=== PATIENT | female | born 1995 | race Caucasian/White ===

== ENCOUNTER → 2018-12-20 | Outpatient (CLI) | payer SELFPAY ==
[2018-12-20 17:48] LABS: Chlamydia Trachomatis by PCR Negative (Negative); Neisserai gonorrhoeae by PCR Negative (Negative); Probe Check PASS; Sample Adequacy Control PASS; Specimen Processing Control PASS
[2018-12-24 12:17] LABS: HPV Reflexed? NOT INDICATED
== END | disposition home or self-care (01) ==
LOC: LABSPEC 15:20
PROVIDERS: Visit Provider Obstetrics & Gynecology
DX: Z34.81 Encounter for supervision of other normal pregnancy, first trimester (principal); Z12.4 Encounter for screening for malignant neoplasm of cervix; Z11.3 Encounter for screening for infections with a predominantly sexual mode of transmission
CPT/HCPCS: 87491; 87591; 88175; G0145

== ENCOUNTER → 2019-01-10 14:19 | Outpatient (CLI) | payer SELFPAY ==
[2019-01-10 15:44] LABS: Color, Urine Yellow (Yellow); Glucose, Dipstick Normal (Normal); Ketone-Dipstick Negative (Negative); Leukocyte Esterase-Dipstick 25 /ul (Negative); Nitrite-Dipstick Negative (Negative); Occult Blood-Urine Negative /ul (Negative); Protein-Dipstick Negative (Negative); Urine Bilirubin Dipstick Negative (Negative); Urine Clarity Clear (Clear); Urine Urobilinogen Normal (Normal)
[2019-01-10 15:48] LABS: Absolute Lymphocyte Count 1.92 X10^3/ul (0.83-4.51); Absolute Neutrophil Count 6.5 X10^3/uL (2.0-7.7); Basophil# 0.02 X10^3/uL; Basophil% 0.2 % (0-1); Eosinophil# 0.16 X10^3/uL; Eosinophils% 1.7 % (0-5); Hematocrit 41.1 % (37-47); Lymphocyte # 1.92 X10^3/ul (4.0); Lymphocyte % 20.8 % (19-41); Mean Corp Hgb Conc 34.1 g/gl (32-36); Mean Corpuscular Hgb 27.8 pg (27.0-32.0); Mean Corpuscular Volume 81.5 fL (81-99); Mean Platelet Vol. 10.1 fl (6.2-12.0); Monocyte# 0.61 X10^3/uL; Monocyte% 6.6 % (0-10); Neutrophil % 70.4 % (47-70); Platelet Count 227 K/mm3 (150-450); RBC Distribution Width CV 13.4 % (11.6-14.6); RBC Distribution Width SD 39.2 fl (35.1-43.9); Red Blood Count 5.04 M/mm3 (4.2-5.4); White Blood Count 9.2 K/mm3 (4.4-11.0)
[2019-01-10 15:50] LABS: POSITIVE COUNT NO; POSITIVE DIFFERENTIAL NO; POSITIVE MORPHOLOGY NO
[2019-01-10 16:06] LABS: Thyroid Stim Hormone (TSH) 0.89 uIU/mL (0.358-3.74)
[2019-01-11 09:23] LABS: HIV - WCH Non-Reactive (Nonreactive); Hepatitis B Surface Antigen Non-Reactive (Nonreactive); Hepatitis C Antibody Non-Reactive (Nonreactive); Rubella IgG 304.9 IU/mL
[2019-01-14 01:18] LABS: Prenatal RPR NONREACTIVE (NONREACTIVE)
== END ==
PROVIDERS: Visit Provider Obstetrics & Gynecology
DX: Z34.81 Encounter for supervision of other normal pregnancy, first trimester (principal)
CPT/HCPCS: 36415; 81002; 84443; 85025; 86703; 86762; 86803; 87340

== ENCOUNTER → 2019-05-06 13:35 | Outpatient (CLI) | payer SELFPAY ==
[2019-05-06 16:04] LABS: Hematocrit 37.5 % (37-47); Hemoglobin 12.5 g/dL (12.0-15.0); Mean Corp Hgb Conc 33.3 g/dL (32-36); Mean Corpuscular Hgb 28.4 pg (27.0-32.0); Mean Corpuscular Volume 85.2 fL (81-99); Mean Platelet Vol. 9.8 fl (6.2-12.0); Platelet Count 170 K/mm3 (150-450); RBC Distribution Width CV 13.8 % (11.6-14.6); RBC Distribution Width SD 42.4 fl (35.1-43.9); White Blood Count 9.4 K/mm3 (4.4-11.0)
[2019-05-06 16:32] LABS: Glucose Challenge Gest 1H 50g 112 mg/dL (70-140)
== END ==
PROVIDERS: Visit Provider Obstetrics & Gynecology
DX: Z34.83 Encounter for supervision of other normal pregnancy, third trimester (principal)
CPT/HCPCS: 36415; 82950; 85027

== ENCOUNTER → 2019-07-04 14:32 | Outpatient (CLI) | payer SELFPAY | PROVIDERS: Visit Provider Obstetrics & Gynecology | DX: Z36.85 Encounter for antenatal screening for Streptococcus B (principal) | CPT/HCPCS: 87081 ==

== ENCOUNTER 2019-07-29 01:35 | Inpatient (IN) | payer SELFPAY ==
[2019-07-28 23:28] VITALS: BMI 42.7
[2019-07-29] MEDS: Lactated Ringers 500 ML 999 ML IV ×2 (02:00→02:41)
[2019-07-29 02:05] LABS: Absolute Lymphocyte Count 2.83 X10^3/uL (0.83-4.51); Absolute Neutrophil Count 6.6 X10^3/uL (2.0-7.7); Basophil# 0.04 X10^3/uL; Basophil% 0.4 % (0-1); Eosinophil# 0.12 X10^3/uL; Eosinophils% 1.1 % (0-5); Hematocrit 39.5 % (37-47); Hemoglobin 13.1 g/dL (12.0-15.0); Lymphocyte # 2.83 X10^3/ul (4.0); Lymphocyte % 26.8 % (19-41); Mean Corp Hgb Conc 33.2 g/dL (32-36); Mean Corpuscular Hgb 28.1 pg (27.0-32.0); Mean Corpuscular Volume 84.6 fL (81-99); Mean Platelet Vol. 9.8 fl (6.2-12.0); Monocyte# 0.88 X10^3/uL; Monocyte% 8.3 % (0-10); NRBC Flagged by Analyzer 0 % (0-5); Neutrophil # 6.58 X10^3/uL (2.7-7.7); Neutrophil % 62.5 % (47-70); Platelet Count 189 K/mm3 (150-450); RBC Distribution Width CV 14.3 % (11.6-14.6); RBC Distribution Width SD 43.3 fl (35.1-43.9); Red Blood Count 4.67 M/mm3 (4.2-5.4); White Blood Count 10.6 K/mm3 (4.4-11.0)
[2019-07-29] MEDS: fentaNYL-bupivacaine (epidural) 100 ML BAG EPIDURAL (02:47)
[2019-07-29] MEDS: Lactated Ringers 1,000 ML 50 ML IV (03:00)
[2019-07-29] MEDS: Lactated Ringers 1,000 ML 200 ML IV (04:24)
[2019-07-29] MEDS: Oxytocin 30 units/NS 500 ml 30 UNITS/500 ML IV.SOLN 334 UNITS IV (06:00)
--- NOTE | 2019-07-29 06:13 | PCM.HP.BLA ---
History and Physical Date of Admission: 07/29/19 [facility] [place] ANTEPARTUM RECORD - HISTORY AND PHYSICAL (07/29/2019) Name: NAS JAMES History of This : This is a 23-year-old patient 2 para 1 who presents at 40 weeks 1 day gestation in active labor. care has been uneventful otherwise. OB Physician: MIKE 's Physician: Dr Bob Burt ...................................................................... : 1995 Age: 23 Address: [address] [place] [address] Phone: (h) [phone] Insurance Carrier: Emergency Contact: JIMBO JAMES [phone] ...................................................................... Final SHIRA: 07/28/19 By Ultrasound: PARITY: (G-Total Pregnancies P-Fullterm,Premature,Induced AB,Spont AB, Ectopics, Multiple,Living) SHIRA CONFIRMATION: By LMP: 10/21/18 Final SHIRA: 07/28/19 OB PROBLEM LIST: [facility] Sibling Class suggested. Declines AFP and CF. Hx vag yeast 3 trimester w first baby-poor latch/thrush for both-weaned at 3w. Enc office Class. First delivery at [facility]. PREFERS MD CARE ALLERGIES: No Known Drug Allergies MEDICATIONS: Probiotic 10 billion cell capsule daily Supplement (s) [No Strength] Vitamin Code Raw Vitamin B-6 50 mg capsule One pill by mouth once a day SOCIAL HISTORY: Smoking - Never Alcohol Use - RARELY not while Diet - balanced Diet, caffeine < 2 drinks per day and Water intake tries for three quarts. Lifestyle - low stress lifestyle and Exercise - Minimal now. Likes to walk. Employer - homemaker Job Description - Illicit Drug Use - denies use of street drugs Sexual Activity - Residence - rent home Place of - [place] Spouse-Sig Other Name - Jimbo Spouse-Sig Other Occupation - [employer] Ann Spouse-Sig Other Phone No - [phone] Children Name(s) - Aida PRIOR DELIVERY HISTORY DEL DATE GEST LAB WT LB WT OZ TYPE ANES LABOR TX Jul 04 [phone] Vag Local No ANTEPARTUM FLOW CHART VISIT GE RTC FU F F CT U U DATE WK MD WKS HT PN HR M SS BP ED WT CT GL D EF ST __ ____ ___ __ __ ___ __ __ __ ___ __ __ __ ___ __ Jul JMW 1 38 V + + 126/78 1+ 246 tr - 2 50 hi 30 Jun ELB 1 38 V + + 124/80 sl 245 - - Jun ELB 1 37 - + + 128/84 sl 244 - - Jun ELB 1 36 V + + 122/80 sl 244 tr - cl TH hi Jun 34 ELB 2 34 - + + 120/66 sl 241 tr - 15 May ELB 2 32 - + + 100/62 sl 239 - - Jun 18 ELB 2 32 + + 102/66 sl 237 - - May 16 ELB 2 28 + + 110/80 sl 235 - - Apr 13 ELB 3 25 - + + 90/60 sl 232 - - Mar 09 ELB 4 - - + + 118/60 0 229 - - Feb 01 ELB 4 - - + ? 120/80 0 227 tr - Dec 28 ELB 4 - - U+ US 120/82 0 228 tr - ANTEPARTUM NOTE(S): Jul 25 2019: Good FM Jul 18 2019: Jul 11 2019: Jul 04 2019: GBS today Jun 20 2019: Jun 03 2019: feeling well. May 20 2019: doing well May 06 2019: feeling well. Glucola drawn. Apr 15 2019: feeling well. Mar 17 2019: Feb 14 2019: gender u/s planned, no comp Jan 10 2019: mild nausea and increased acid indigestion COMPREHENSIVE ANTEPARTUM NOTE(S): Jul 25 2019: Nas is here for a appointment. Baby is moving good. Reports minimal swelling at night. No other complaints. Urine came back as tr -. MK Jul 18 2019: Nas reporting good FM. Some Adam-Echeverria. Defers vag exam today. She did get pre-registered. [facility] Jul 18 2019: Not too much happening re UCs. + FM. Relates traumatic first delivery, no epidural Very painful. Laceration to repair then. WANTS epidural this time. RTO in 1 wk for PNV. EB Jul 11 2019: Nas reporting good FM. No Sx labor. Sent to pre-register. [facility] Jul 11 2019: H taken to OB. tkg Jul 07 2019: GBS negative. EB Jul 04 2019: GBS testing today. RTO in 1 wk for PNV. Declines LARC. Explained GBS testing and tx. EB Jun 20 2019: Nas is here for visit. Uncomfortable but otherwise doing well. Reviewed increased rest breaks may help. Tdap and Flu vaccine encouraged. LMT May 20 2019: Feeling well; reports active FM; denies UCs, VB, LOF; discussed warning signs, s/s PTL; RTO 2 weeks for PNV - KVW May 10 2019: Glucola 112. EB May 06 2019: Feeling well; reports active FM; denies UCs, VB, LOF; 1 hour Glucola and bloodwork drawn today; discussed warning signs, s/s PTL; RTO 2 weeks for PNV with EB - KVW May 06 2019: Hgb 12. 5 g/dl. EB Apr 15 2019: Feeling FM now. Anterior placenta 28 wk labs next visit. Encouraged : tdaP and flu vaccine. EB Mar 17 2019: Comprehensive US today. Anterior placenta--Nas is feeliing FM. kbm Feb 14 2019: Reviewed NOB labs. Plans recreational sono in [place] to see gender. Declines 20 wk sono. EB Jan 11 2019: A positive Rubella Immune. EB Jan 10 2019: Nas is here for NOB nurse visit with SHIRA 07-28-19 planning a vag del w epidural at [facility], using Dr Burt for post disch ped care and to breastfeed. Nas is a G 2 P 1 with 2 1/2 yo daughter and is a homemaker. Her , Jimbo works as a mary ann. They are pleased about the pg. Nas had a 7 hour labor without an epidural in [place] but prefers to have one this time. did not go well as she had latch issues and then thrush early on. She relates she had untreated vag yeast symptoms of itching and burning in her third trimester - checked and treated when she insisted. She'd like more assistance in OB with nursing and plans to take office Classes. Nas has NKA to meds, food, latex or the environment. She is a lifetime non smoker, rarely drinks alcohol and denies street drug use past or present. Her diet sounds balanced w minimal caffeine and about 3 quarts of water daily. Importance of protein in her diet discussed. She used to be more active and walking 20 min q day suggested. Genetics Screening form completed noting no family issues. She declines CF and AFP. Warning signs in pg reviewed as well as reaching the office after hours, lifting restriction of 25#, otc med ok to take, wearing seatbelt low on her abdomen with understanding voiced. She was given a copy of What to Expect. She's had chickenpox and has some problems with constipation which her probiotic usually helps. US done today and routine labs drawn. Enc to call w any concerns she has. Visit lasted approx 45 min. Dione DICKINSON. Jan 10 2019: Hgb 14 g/dl. EB Dec 21 2018: GC and chlamydia NEG EB Dec 20 2018: Nas is here for missed menses. She relates LMP of 10/21, +UPT today in office, approx EDC 07/28/19. She is . She had normal with induction for post dates with . She had more nausea with first . Mild nausea reported with occ emesis. Does have pretty bad reflux. Reviewed trial of Unisom, B6, and adding acid pier master assistant. IF this is not working to call office for Rx. She is on Vitamin Code Raw PNV. She would be due for pap today. No history of abnormals. Educational materials are provided and reviewed. Encouraged increased po fluids, diet changes, and recommend 30 minutes of exercise 5x/wk. LMT REVIEW OF SYSTEMS: GENERAL - Denies fever, or chills SKIN - Denies rash, new skin lesions, or change in moles EYES - Denies blurred vision, or change in visual acuity EARS - Denies ear pain, or difficulty hearing NOSE - Denies nasal congestion, discharge, or bleeding MOUTH - Denies sore throat, or difficulty swallowing NECK - Denies pain or swelling RESPIRATORY - Denies shortness of breath, cough, wheezing CARDIOVASCULAR - Denies palpitations, chest pain, orthopnea, PND, peripheral edema, syncope or claudication GASTROINTESTINAL - Denies nausea, vomiting, diarrhea, constipation, Denies abdominal pain, melena and or bright red blood GENITOURINARY - Denies dysuria, frequency of urination, urgency, or hesitancy MUSCULOSKELETAL - Denies joint or muscle pain, or back pain NEUROLOGICAL - Denies localized numbness, weakness, or tingling PSYCHIATRIC - Denies depression, anxiety, substance abuse or suicide attempts ENDOCRINE - Denies heat or cold intolerance, weight loss or gain, increasing thirst HEMATO-IMMUNOLOGIC - Denies easy bruising, bleeding, oral ulcerations or recurrent infections GENETICS SCREENING: Age 35+ years: No Thalassemia: No Neural Tube Defect: No Down Syndrome: No WARNER-SACHS: No Sickle Cell Disease: No Hemophilia: No Musc. Dystrophy: No Cystic Fibrosis: No-declines screening Baljinder Chorea: No Mental Retardation: No Fragile X: No Other genetic: No Other defects: No SABs/still births: No Drugs since LMP: No INFECTION HISTORY: High risk AIDS: No High risk Hepatitis: No Exposed to TB: No Exposed to Herpes: No Rash/viral illness since LMP: No History of STD: No MENSTRUAL HISTORY: *Menses Amount/Duration: 4-5 DAYSMenses Regularity: IrregularFrequency: variableMenarche (Age Onset): 13* PAST SUMMARY: PARITY: 1. Total Pregnancies............ 2 2. Full Term Pregnancies........ 1 3. Premature.................... 0 4. Abortions - Induced.......... 0 5. Abortions - Spontaneous...... 0 6. Ectopics..................... 0 7. Multiple Births.............. 0 8. Living Children.............. 1 PAST #1: Date of :.................. 07/10/16 Gestation Weeks:................ 41 Length of labor(hours):......... 7 Sex:............................ F Weight-lbs:............... 8 Weight-oz:................ 9 Type of Delivery:............... Vag Type of Anesthesia:............. Local Place of Delivery:.............. Shah Treatment of Labor?:.... No Comment: IND.PUPPS. 2PUSHES.3RD D. PHYSICAL EXAMINATION General Appearence: 23 yo female in no acute distress Vital Signs: AF, VSS Heart: RRR without rubs or gallops Lungs: CTA x 2 Breasts: deferred Abdomen: gravid Pelvis: Cervix: 4 cm, 85% effaced Presentation: cephalic Station: -2 Fetus: Size: AGA Movement: present Heart: present Labs for : NAS JAMES since 10/31/2018 ORDER DATEIN DESCRIPTION VALUE UNITS RANGE A+ COMMENT TYPE AND SCREEN 07/29/19 Reason for Type AND Screen/Red Cells: Labor [facility]~[address] [place], [address]~ BLOOD TYPE GEL A POSITIVE N ANTIBODY SCREEN NEGATIVE N CBC W/DIFF, AUTOMATED 07/29/19 NOTE Original Ordering Provider: STERLING Aceves WBC 10.6 K/mm3 4.4-11.0 RBC 4.67 M/mm3 4.2-5.4 HGB 13.1 g/dL 12.0-15.0 HCT 39.5 % 37-47 MCV 84.6 fL 81-99 MCH 28.1 pg 27.0-32.0 MCHC 33.2 g/dL 32-36 RDW CV 14.3 % 11.6-14.6 RDW SD 43.3 fl 35.1-43.9 PLT 189 K/mm3 150-450 MPV 9.8 fl 6.2-12.0 NEUT% 62.5 % 47-70 LY% 26.8 % 19-41 MONO% 8.3 % 0-10 EO% 1.1 % 0-5 BASO% 0.4 % 0-1 IM GRAN % 0.900 % 0.0-0.9 IG% - Immature Granulocytes (promyelocytes, myelocytes and metamyelocytes) > 1% indicates that a LEFT SHIFT is Present. ABSOLUTE NEUT 6.6 X10 3/uL 2.0-7.7 ABSOLUTE LYMPH 2.83 X10 3/uL 0.83-4.51 NRBC, FLAGGED 0 % 0-5 CULTURE, GROUP B STREPTOCOCCUS 07/04/19 NOTE Original Ordering Provider: Rita Kern Comments: VAGINAL/RECTAL LENO Culture Group B Beta Streptococcus is not isolated. Reviewed by RITA GLUCOSE CHALLENGE GEST 1H 50G 05/06/19 NOTE Original Ordering Provider: Rita Kern GLU GEST 50G 1H 112 mg/dL 70-140 Reviewed by RITA CBC-COMPLETE BLOOD CNT NO DIFF 05/06/19 NOTE Original Ordering Provider: Rita Kern WBC 9.4 K/mm3 4.4-11.0 RBC 4.40 M/mm3 4.2-5.4 HGB 12.5 g/dL 12.0-15.0 HCT 37.5 % 37-47 MCV 85.2 fL 81-99 MCH 28.4 pg 27.0-32.0 MCHC 33.3 g/dL 32-36 RDW CV 13.8 % 11.6-14.6 RDW SD 42.4 fl 35.1-43.9 PLT 170 K/mm3 150-450 MPV 9.8 fl 6.2-12.0 Reviewed by RITA RPR 01/10/19 NOTE Original Ordering Provider: Rita Kern RPR NONREACTIVE NONREACTIVE Reviewed by RITA HEPATITIS C ANTIBODY 01/10/19 NOTE Original Ordering Provider: Rita Kern HEPATITIS C AB Non-Reactive Nonreactive Non Reactive: < 0.8 Equivocal: >/= 0.8 to < 1.0 Reactive: >/= 1.0 The CDC recommends that a reactive/equivocal HCV antibody result be followed up by the HCV Nucleic Acid Amplification test (015003) Reviewed by RITA HEPATITIS B SURFACE ANTIGEN 01/10/19 NOTE Original Ordering Provider: Rita Kern HEPB SURFACE AG Non-Reactive Nonreactive Reviewed by RITA HIV - [facility] 01/10/19 NOTE Original Ordering Provider: Rita Kern HIV - [facility] Non-Reactive Nonreactive Reviewed by RITA RUBELLA IGG 01/10/19 NOTE Original Ordering Provider: Rita Kern RUBELLA IGG 304.9 IU/mL Antibody results Interpretation of Immune Status < 5 IU/ml Presumed Non-immune 5 - < 10 IU/ml Equivocal > or = 10 IU/ml Presumed Immune Reviewed by RITA T AND S-NO CHARGE W/PNP 01/10/19 Reason for Type AND Screen/Red Cells: Surgery? N [facility]~[address] [place], [address]~ BLOOD TYPE GEL A POSITIVE N AB SCREEN GEL NEGATIVE N Reviewed by RITA THYROID STIM HORMONE (TSH) 01/10/19 NOTE Original Ordering Provider: Rita Kern TSH 0.89 uIU/mL 0.358-3.74 Reviewed by RITA CBC W/DIFF, AUTOMATED 01/10/19 NOTE Original Ordering Provider: Rita Kern WBC 9.2 K/mm3 4.4-11.0 RBC 5.04 M/mm3 4.2-5.4 HGB 14.0 g/dl 12.0-15.0 HCT 41.1 % 37-47 MCV 81.5 fL 81-99 MCH 27.8 pg 27.0-32.0 MCHC 34.1 g/gl 32-36 RDW CV 13.4 % 11.6-14.6 RDW SD 39.2 fl 35.1-43.9 PLT 227 K/mm3 150-450 MPV 10.1 fl 6.2-12.0 NEUT% 70.4 % 47-70 H LY% 20.8 % 19-41 MONO% 6.6 % 0-10 EO% 1.7 % 0-5 BASO% 0.2 % 0-1 IM GRAN % 0.300 % 0.0-0.9 IG% - Immature Granulocytes (promyelocytes, myelocytes and metamyelocytes) > 1% indicates that a LEFT SHIFT is Present. ABSOLUTE NEUT 6.5 X10 3/uL 2.0-7.7 ABSOLUTE LYMPH 1.92 X10 3/ul 0.83-4.51 Reviewed by RITA URINALYSIS, ROUTINE (DIPSTICK) 01/10/19 NOTE Original Ordering Provider: Rita Kern COLOR Yellow Yellow CLARITY Clear Clear GLUCOSE, UR Normal mg/dl Normal BILIRUBIN URINE Negative mg/dL Negative KETONE UR Negative mg/dl Negative SP.GR. DIPSTX 1.010 1.002-1.030 PH UR 7.0 5.0 - 8.0 PROT DIPSTX Negative mg/dl Negative UROBILI Normal mg/dl Normal NITRITE UR Negative Negative OCCULT BLOOD-UR Negative /ul Negative LEUK ESTERASE 25 /ul Negative H Reviewed by RITA PAP I-G W/RFX HRHPV 12/20/18 NOTE Original Ordering Provider: Rita Kern DIAGN . NEGATIVE FOR INTRAEPITHELIAL LESION OR MALIGNANCY. ADEQ . Satisfactory for evaluation. No endocervical component is identified. An endocervical component is not commonly seen in the patient. PERFORM . Aishwarya Collazo Community Marketing Manager (ASCP) TEST METHOD . This liquid based ThinPrep(R) pap test was screened with the use of an image guided system. COMM . . PAPSMR . The Pap smear is a screening test designed to aid in the detection of premalignant and malignant conditions of the uterine cervix. It is not a diagnostic procedure and should not be used as the sole means of detecting cervical cancer. Both false-positive and false-negative reports do occur. HPV RFLX . The HPV DNA reflex criteria were not met with this specimen result therefore, no HPV testing was performed. Performed at: [address] [id number] Daycare Director: Keisha Cheatham MD, Phone: [phone] Reviewed by RITA CT/EDUARDO [facility] BY PCR 12/20/18 NOTE Original Ordering Provider: Rita Kern [facility] PCR Negative Negative NG BY PCR Negative Negative Reviewed by RITA Impression /Plan: 40+ week intrauterine in active labor. Preparations in progress for delivery.
--- NOTE | 2019-07-29 06:16 | PCM.OPRPT ---
Vaginal Delivery Maternal Presentation: Active Labor Amniotic Membrane Rupture Type: Spontaneous Amniotic Fluid Description: Clear Final SHIRA: 07/28/19 Final SHIRA Source: US <20 weeks Gestational age: 40 Weeks and 1 Days Date of Procedure: 07/29/19 Pre-Operative Diagnosis: IUP Post-Operative Diagnosis: IUP Surgery/ Procedure Performed: Spontaneous Vaginal Delivery Type of Anesthesia: Epidural Description of Procedure: Spontaneous vaginal delivery of a viable female infant with Apgars of 9/9 from an occiput anterior presentation with clear amniotic fluid and normal three-vessel placenta. Cord around shoulder x1 tight. No episiotomy. First-degree midline laceration repaired in layers with 3-0 repeat suture under epidural. Sponges okay. Delivery physician: Aries Miller MD. Presentation: Vertex Placental Delivery Description: Spontaneous Placenta Disposition: [facility] Cord Vessel Description: 3 Vessels Estimated Blood Loss: 250 cc Infant A gender: Female (1 minute): 9 (5 minute): 9 Episiotomy Description: None Laceration: Midline, Perineal Extension/lac, 1st degree Medications given after delivery: IV Pitocin Complications: None
--- NOTE | 2019-07-29 06:19 | DCINST_ITS ---
Discharge Activity: May Shower, May Take a Tub Bath May resume sexual activity in: 4-6 weeks Additional Activity Instructions:: Nothing in the vagina for 4-6 weeks. You may return to work/school in 6 weeks. Call your doctor if you observe: Fever of 101 or Higher, Inability to urinate, Inability to have a bowel movement, Using more than one pad per hour Additional Instructions: If you experience any of the following, contact your healthcare provider. * Bleeding that soaks a pad every hour for 2 hours * Unrelieved incision or abdominal pain * Swelling, redness, discharge or bleeding from your incision or episiotomy site * Your incision begins to separate * Problems urinating (including inability to urinate or burning while urinating). * Visual changes * Severe headache * Flu-like symptoms * Pain or redness in one of both of your breasts * Pain, warmth, tenderness or swelling in your legs, especially the calf area * Frequent nausea and vomiting * Symptoms of depression or anxiety If you experience any of the following, call 911 or go to the nearest Emergency Room. * Chest pain * Problems breathing * Seizure activity * Partial or complete paralysis of a body part, slurred speech, weakness or drooping of the face, or a sudden inability to walk or hold your balance Allergies/Adverse Reactions: Allergies No Known Allergies Allergy (Verified 07/28/19 23:30) Medications to take at Discharge Prenatabs FA 1 tab PO DAILY 07/28/19 Please Follow Up With: Aries Miller MD - [phone] When: Call to make an appointment with your doctor in 6 weeks. Primary Care Physician: Care Physician,No Primary [Primary Care Provider] - Test Results: Test results from this visit will be discussed in further detail at your follow- up appointment, if applicable.
--- NOTE | 2019-07-29 06:19 | PCM.DCVAG ---
Discharge Activity: May Shower, May Take a Tub Bath May resume sexual activity in: 4-6 weeks Additional Activity Instructions:: Nothing in the vagina for 4-6 weeks. You may return to work/school in 6 weeks. Call your doctor if you observe: Fever of 101 or Higher, Inability to urinate, Inability to have a bowel movement, Using more than one pad per hour Additional Instructions: If you experience any of the following, contact your healthcare provider. Bleeding that soaks a pad every hour for 2 hours Unrelieved incision or abdominal pain Swelling, redness, discharge or bleeding from your incision or episiotomy site Your incision begins to separate Problems urinating (including inability to urinate or burning while urinating). Visual changes Severe headache Flu-like symptoms Pain or redness in one of both of your breasts Pain, warmth, tenderness or swelling in your legs, especially the calf area Frequent nausea and vomiting Symptoms of depression or anxiety If you experience any of the following, call 911 or go to the nearest Emergency Room. Chest pain Problems breathing Seizure activity Partial or complete paralysis of a body part, slurred speech, weakness or drooping of the face, or a sudden inability to walk or hold your balance Allergies/Adverse Reactions: Allergies No Known Allergies Allergy (Verified 07/28/19 23:30) Medications to take at Discharge Prenatabs FA 1 tab PO DAILY 07/28/19 Please Follow Up With: Aries Miller MD - [phone] When: Call to make an appointment with your doctor in 6 weeks. Primary Care Physician: Care Physician,No Primary [Primary Care Provider] - Test Results: Test results from this visit will be discussed in further detail at your follow-up appointment, if applicable.
[2019-07-29] MEDS: Methylergonovine 0.2 MG/ML Ampul IM (08:27)
[2019-07-29] MEDS: Acetaminophen 500 MG Tablet 1000 MG PO ×2 (08:47→21:18)
[2019-07-29 12:35] VITALS: BP 132/82; PULSE 80; RESP 16; TEMP 36.5
[2019-07-29] MEDS: Ibuprofen 600 MG Tablet PO ×2 (13:38→20:01)
[2019-07-29 16:36] VITALS: BP 122/55; PULSE 80; RESP 18; TEMP 36.2
[2019-07-29 19:51] VITALS: BP 123/68; PULSE 87; RESP 14; TEMP 36.7
[2019-07-29 23:28] VITALS: BP 117/44; PULSE 72; RESP 14; TEMP 36.4
[2019-07-30 03:49] VITALS: BP 121/46; PULSE 84; RESP 16; TEMP 36.4
[2019-07-30] MEDS: Acetaminophen 500 MG Tablet 1000 MG PO (09:01)
[2019-07-30 09:03] VITALS: BP 117/71; PULSE 70; RESP 16; TEMP 36.3
[2019-07-30] MEDS: Ibuprofen 600 MG Tablet PO (11:02)
[2019-07-30 11:20] VITALS: BP 121/81; PULSE 64; RESP 16; TEMP 36.3
--- NOTE | 2019-07-30 12:35 | NURSING ---
discharge instr reviewed with the pt and her spouse. discharge instr reviewed regarding the baby as well cord clamp and transponder removed pt has watched her cpr video and footprints on comp card done as well pt and baby taken to the front of the hosp and dc to home
--- NOTE | 2019-07-30 12:49 | PCM.PN.OB ---
Subjective: Pain well controlled, tolerating diet, passing flatus, nursing well; spouse bedside and supportive; desires discharge home today Objective: AVSS Breasts soft, nipples mildly excoriated Fundus firm, midline, u/u lochia small Perineal repair well approximated, mild edema, no drainage, erythema or ecchymosis noted - Physical Exam Vitals/I&O's: Vital Signs Temp Pulse Resp BP 97.4 F L 64 16 121/81 H 07/30/19 11:20 07/30/19 11:20 07/30/19 11:20 07/30/19 11:20 Oxygen Delivery Method Room Air Weight: 249 lb Body Mass Index (BMI) 42.7 Intake and Output for Last 24 Hours 07/28/19 07/29/19 07/30/19 23:59 23:59 23:59 Intake Total 1992.50 / 1991.50 200 / 200 Output Total 900 / 900 Balance 1092.50 / 1092.50 200 / 200 General: Alert, Oriented x3, Cooperative, No apparent distress HEENT: PERRLA, EOMI Oral: Moist Mucosa Neck: Supple Lungs: Clear to auscultation, Normal air movement Cardiovascular: Regular rate, Regular Rhythm Abdomen: Bowel Sounds Present, Soft, Non Tender, Non-Distended, Passing Flatus, Obese Extremities: Edema - 2+ non pitting bilateral pedal Skin: No rashes Musculoskeletal: No Tenderness to Palpation of Joints or Extremities Neurological: Cranial nerves II-XII grossly intact, Deep Tendon Reflexes 2+/4 and Symmetrical, Neuro grossly intact Psych/Mental Status: Normal Affect, Appropriate, Alert and oriented to time, place, person, mood and affect Current Medications Acetaminophen (Tylenol) 1,000 mg PO Q8H PRN PRN PRN Reason: Pain Score 1-3/10 Last Admin: 07/30/19 09:01 Dose: 1,000 mg Documented by: Bisacodyl (Dulcolax) 10 mg RECTAL UD PRN PRN Reason: If no BM Dibucaine (Dibucaine) 1 applic TOPICAL TID PRN PRN; Protocol PRN Reason: Discomfort Hydrocortisone (Hytone) 1 applic TOPICAL TID PRN PRN; Protocol PRN Reason: Discomfort Ibuprofen (Motrin) 600 mg PO Q6H PRN PRN PRN Reason: Pain Score 1-3/10 Last Admin: 07/30/19 11:02 Dose: 600 mg Documented by: Methylergonovine Maleate (Methergine) 0.2 mg IM X1 PRN PRN Reason: Excess bleeding/uterine atony Last Admin: 07/29/19 08:27 Dose: 0.2 mg Documented by: Ondansetron HCl (Zofran) 4 mg IV Q4H PRN PRN PRN Reason: Nausea Oxycodone HCl (Oxyir) 5 - 10 mg PO Q4H PRN PRN PRN Reason: Pain Score 4-10/10 Senna/Docusate Sodium (Senokot-S, Alondra-Colace) 1 - 2 tablet PO DAILY PRN PRN PRN Reason: Constipation Simethicone (Mylicon) 80 mg PO PCHS PRN PRN Reason: Indigestion/Stomach pain Zolpidem Tartrate (Ambien (Generic)) 5 mg PO QHS PRN PRN PRN Reason: Insomnia Medical Necessity - Tobacco Use Smoking Status: Never smoker Assessment/Plan Assessment: 23 yo G2 now P002 delivered via at 40w1d by L=11w4d US PP Day #1, normal involution, normal course Plan: Discharge teaching completed Discharge home today RTO 6 weeks for PP checkup
== END 2019-07-30 12:30 | disposition home or self-care (01) | DRG 807 ==
LOC: WPOUT 01:39 → WP 01:39
PROVIDERS: Admitting Provider Advanced Practice Midwife; Referring Provider Advanced Practice Midwife; Visit Provider Obstetrics & Gynecology
DX: O42.02 Full-term premature rupture of membranes, onset of labor within 24 hours of rupture (principal); Z37.0 Single live birth; O69.2XX0 Labor and delivery complicated by other cord entanglement, with compression, not applicable or unspecified; O70.0 First degree perineal laceration during delivery; Z3A.40 40 weeks gestation of pregnancy
CPT/HCPCS: 59025; 59050; 85025; 86850; 86900; 86901; 99218; J7120; G0378

== ENCOUNTER 2021-08-26 14:37 | Outpatient (CLI) | payer SELFPAY ==
[2021-08-26 14:56] LABS: Absolute Lymphocyte Count 2.26 X10^3/uL (0.83-4.51); Absolute Neutrophil Count 7.6 X10^3/uL (2.0-7.7); Basophil# 0.06 X10^3/uL; Basophil% 0.6 % (0-1); Eosinophil# 0.13 X10^3/uL; Eosinophils% 1.2 % (0-5); Hematocrit 40.8 % (37-47); Hemoglobin 13.7 g/dL (12.0-15.0); Lymphocyte # 2.26 X10^3/ul (0.83-4.51); Lymphocyte % 21.1 % (19-41); Mean Corp Hgb Conc 33.6 g/dL (32-36); Mean Corpuscular Hgb 28.1 pg (27.0-32.0); Mean Corpuscular Volume 83.6 fL (81-99); Mean Platelet Vol. 9.3 fl (6.2-12.0); Monocyte# 0.59 X10^3/uL; Monocyte% 5.5 % (0-10); NRBC Flagged by Analyzer 0 % (0-5); Neutrophil # 7.57 X10^3/uL (2.7-7.7); Neutrophil % 70.9 % (47-70); Platelet Count 265 K/mm3 (150-450); RBC Distribution Width CV 12.7 % (11.6-14.6); RBC Distribution Width SD 38.3 fl (35.1-43.9); Red Blood Count 4.88 M/mm3 (4.2-5.4); White Blood Count 10.7 K/mm3 (4.4-11.0)
[2021-08-26 16:04] LABS: HIV - WCH Non-Reactive (Nonreactive); Hepatitis B Surface Antigen Non-Reactive (Nonreactive); Hepatitis C Antibody Non-Reactive (Nonreactive); Rubella IgG Reactive (Nonreactive); Syphilis Antibodies Non-reactive
[2021-08-29 21:04] LABS: HPV Reflexed? NOT INDICATED
[2021-08-30 05:07] LABS: Chlamydia By Nucleic Acid AMP Negative (Negative)
[2021-08-30 14:30] LABS: Gonococcus By Nucleic Acid AMP Negative (Negative)
== END 2021-08-26 23:59 | disposition home or self-care (01) ==
LOC: WOBLAB 14:38
PROVIDERS: Visit Provider Student in an Organized Health Care Education/Training Program
DX: Z34.81 Encounter for supervision of other normal pregnancy, first trimester (principal); Z12.4 Encounter for screening for malignant neoplasm of cervix; Z11.3 Encounter for screening for infections with a predominantly sexual mode of transmission
CPT/HCPCS: 36415; 85025; 86703; 86762; 86780; 86803; 87086; 87088; 87340; 87491; 87591; 88175; G0145

== ENCOUNTER → 2022-01-07 | Outpatient (CLI) | payer SELFPAY ==
[2022-01-07 14:27] LABS: Hematocrit 34.1 % (37-47); Hemoglobin 11.5 g/dL (12.0-15.0); Mean Corp Hgb Conc 33.7 g/dL (32-36); Mean Corpuscular Hgb 28.4 pg (27.0-32.0); Mean Corpuscular Volume 84.2 fL (81-99); Mean Platelet Vol. 9.6 fl (6.2-12.0); Platelet Count 217 K/mm3 (150-450); RBC Distribution Width CV 13.4 % (11.6-14.6); RBC Distribution Width SD 41.2 fl (35.1-43.9); Red Blood Count 4.05 M/mm3 (4.2-5.4); White Blood Count 8.8 K/mm3 (4.4-11.0)
[2022-01-07 15:16] LABS: Glucose Challenge Gest 1H 50g 120 mg/dL (70-140)
== END | disposition home or self-care (01) ==
PROVIDERS: Visit Provider Student in an Organized Health Care Education/Training Program
DX: Z34.82 Encounter for supervision of other normal pregnancy, second trimester (principal)
CPT/HCPCS: 36415; 82950; 85027

== ENCOUNTER → 2022-04-01 | Outpatient (CLI) | payer SELFPAY | END | disposition home or self-care (01) | LOC: LABSPEC 14:51 | PROVIDERS: Visit Provider Student in an Organized Health Care Education/Training Program | DX: Z36.85 Encounter for antenatal screening for Streptococcus B (principal) | CPT/HCPCS: 87081 ==

== ENCOUNTER 2022-04-25 08:45 | Inpatient (IN) | payer SELFPAY ==
[2022-04-25] VITALS (30 sets, daily range): BP systolic 113–146; BP diastolic 58–87; PULSE 74–162; TEMP 36.8–37.6; O2SAT 82–100; BMI 43.9
[2022-04-25] MEDS: Lactated Ringers 1,000 ML 50 ML IV (09:10)
[2022-04-25 09:19] LABS: Absolute Lymphocyte Count 1.79 X10^3/uL (0.83-4.51); Absolute Neutrophil Count 7.7 X10^3/uL (2.0-7.7); Basophil# 0.03 X10^3/uL; Basophil% 0.3 % (0-1); Hematocrit 36.8 % (37-47); Hemoglobin 12.5 g/dL (12.0-15.0); Lymphocyte # 1.79 X10^3/ul (0.83-4.51); Lymphocyte % 17.5 % (19-41); Mean Corpuscular Hgb 28.3 pg (27.0-32.0); Mean Corpuscular Volume 83.4 fL (81-99); Mean Platelet Vol. 10.1 fl (6.2-12.0); Monocyte# 0.53 X10^3/uL; Monocyte% 5.2 % (0-10); NRBC Flagged by Analyzer 0 % (0-5); Neutrophil # 7.74 X10^3/uL (2.7-7.7); Neutrophil % 75.4 % (47-70); Platelet Count 219 K/mm3 (150-450); RBC Distribution Width CV 14.4 % (11.6-14.6); RBC Distribution Width SD 43.6 fl (35.1-43.9); Red Blood Count 4.41 M/mm3 (4.2-5.4); White Blood Count 10.3 K/mm3 (4.4-11.0)
[2022-04-25] MEDS: Oxytocin 30 units/NS 500 ml 30 UNITS/500 ML IV.SOLN IV (09:47)
--- NOTE | 2022-04-25 12:37 | PCM.HP.BLA ---
History and Physical Date of Admission: 04/25/22 HPI: 26-year-old G3, P2 at 40/6 weeks, SHIRA by first trimester ultrasound, admitted for induction of labor at term. Denies regular contractions, leaking of fluid. Reports movement. Denies fevers or chills, nausea or vomiting, diarrhea or constipation, headache or vision changes, dizziness, chest pain or shortness of breath. complicated by: Obesity CHILD MONITOR history: G1 41-week G2 40-week G3 current Medical history: Denies Surgical history: [place] tooth extraction Medications: vitamin, Pepcid Allergies: No known drug allergies Family history: Noncontributory Social history: Denies tobacco, alcohol, drug use Review of system: Negative otherwise stated above Physical exam: Blood pressure 113/72, heart rate 80 General: No acute distress HEENT: Normal cephalic/atraumatic, PERRLA Cardiorespiratory: No increased effort Abdomen: Soft, nontender, gravid Extremities: no edema Musculoskeletal: Strength 5 out of 5 throughout all extremities Neurologic: Cranial nerves II through XII grossly intact no focal deficits Ce: 4 cm external os, 3 cm internal. unable to AROM with attempt. heart rate: 135/mod subhash/+accel/no decel [place]: irregular panel: A+ GBS negative on 04/01 HIV, hepatitis B/C all neg Syphilis negative Rubella immune Gonorrhea/chlamydia negative Assessment/plan: 26-year-old G3, P2 at 40/6 weeks, SHIRA by first trimester ultrasound, admitted for induction of labor at term. complicated by: Obesity. ?Admit to labor and delivery ?Induction of labor with Pitocin ?GBS negative
[2022-04-25] MEDS: Lactated Ringers 1,000 ML 200 ML IV (14:41)
[2022-04-25] MEDS: LACTATED RINGERS 500 ML 999 ML IV (16:30)
[2022-04-25] MEDS: fentaNYL-bupivacaine (epidural) 100 ML BAG EPIDURAL (17:10)
--- NOTE | 2022-04-25 17:29 | PCM.PN.OB ---
Subjective Subjective Comfortable with epidural Objective Data Objective Data Vital Signs: Vital Signs Temp Pulse BP Pulse Ox 98.8 F 78 114/71 98 04/25/22 16:23 04/25/22 17:23 04/25/22 17:22 04/25/22 17:23 Weight: 116.12 kg Body Mass Index (BMI) 43.9 Intake & Output: Intake and Output for Last 24 Hours 04/23/22 04/24/22 04/25/22 23:59 23:59 23:59 Intake Total 1336.40 / 1336.40 Output Total 600 / 600 Balance 736.40 / 736.40 Lab / Micro Data Result Diagrams: 04/25/22 09:10 Labs: Laboratory Results - last 24 hr 04/25/22 09:10: WBC 10.3, RBC 4.41, Hgb 12.5, Hct 36.8 L, MCV 83.4, MCH 28.3, MCHC 34.0, RDW Std Deviation 43.6, RDW Coeff of Declan 14.4, Plt Count 219, MPV 10.1, Immature Gran % (Auto) 0.600, Neut % (Auto) 75.4 H, Lymph % (Auto) 17.5 L, [place] % (Auto) 5.2, Eos % (Auto) 1.0, Baso % (Auto) 0.3, Absolute Neuts (auto) 7.7, Absolute Lymphs (auto) 1.79, Nucleated RBC % 0 04/25/22 09:10: Blood Type A POSITIVE, Antibody Screen NEGATIVE Micro: Microbiology 04/25/22 09:10 Nasal Secretion SARS-CoV-2 Antigen (Rapid) - Final Physical Exam Narrative: 4-5 cm/60/-2, AROM clear fluid NST FHR Rate Baby A Baseline: 130 Variability:: Moderate Accelerations:: 15 x 15 Decelerations:: None FHR Category:: Category I Assessment Assessment Detail: Continue induction of labor, titrate Pitocin as tolerated.
[2022-04-25] MEDS: Oxytocin 30 units/NS 500 ml 30 UNITS/500 ML IV.SOLN 334 UNITS IV (19:43)
--- NOTE | 2022-04-25 19:53 | EX.PCM.OBRPT ---
Assessment & Plan (1) (normal spontaneous vaginal delivery): Maternal Data Information Final SHIRA: 04/19/22 Gestational age: 40w6d Vaginal Delivery Operative Information Date of Procedure: 04/25/22 Pre-Operative Diagnosis: Induction of Labor Post-Operative Diagnosis: Surgery / Procedure Performed: Spontaneous Vaginal Delivery Type of Anesthesia: Epidural Estimated Blood Loss: 200ml Time of Delivery: 19:41 Findings Description of Procedure: Progressed to complete with urge to push. Epidural for pain management and on hands and knees. Called to delivery with head . of viable male infant over intact perineum. APGARS 9,9 respectively. Infant head delivered with body immediately forthcoming. Flipped to back and infant placed on maternal abdomen, strong cry. Mouth and nares wiped for secretions. Pitocin started for active 3rd stage management. Cord doubly clamped and cut by FOB after pulsations ceased, delayed cord clamping. Placenta delivered intact via irvin, 3 vessel cord intact. Perineum inspected and revealed to be intact. Fundus firm and hemostasis achieved. EBL 200ml. Mom and baby stable, planning to breastfeed. Family bonding well. Dr. Javier Ortega presented after delivery and notified. Presentation: Vertex Amniotic Membrane Rupture Type: Artificial Amniotic Fluid Description: Clear Placental Delivery Description: Spontaneous Placenta Disposition: [facility] Cord Vessel Description: 3 Vessels Cord Entanglement: None A Gender: Male (1 minute): 9 (5 minute): 9 Delayed Cord Clamping: Yes Post Vaginal Delivery Medications Given After Delivery: IV Pitocin Episiotomy Description: None Laceration: None Complication Complications: None
[2022-04-25] MEDS: Methylergonovine 0.2 MG/ML Ampul IM (21:04)
[2022-04-25] MEDS: Ondansetron 4 MG/2 ML Vial IV (21:17)
[2022-04-25] MEDS: Ibuprofen 600 MG Tablet PO (23:35)
[2022-04-26 00:06] VITALS: BP 136/71; PULSE 79; RESP 16; TEMP 36.6
[2022-04-26 04:52] VITALS: BP 118/67; PULSE 77; RESP 16; TEMP 36.1
[2022-04-26] MEDS: Acetaminophen 500 MG Tablet 1000 MG PO ×2 (07:56→20:24)
[2022-04-26] MEDS: Senna/Docusate Sodium 1 Tablet PO (07:57)
[2022-04-26 08:03] VITALS: BP 133/81; PULSE 71; RESP 16; TEMP 36.6
--- NOTE | 2022-04-26 09:37 | PCM.PN.OB ---
Subjective Subjective day 1. Lochia minimal. Pain controlled. Working on breast-feeding. Objective Data Objective Data Vital Signs: Vital Signs Temp Pulse Resp BP Pulse Ox O2 Del Method 97.9 F 71 16 133/81 H 98 Room Air 04/26/22 08:03 04/26/22 08:03 04/26/22 08:03 04/26/22 08:03 04/25/22 21:59 04/26/22 08:03 Oxygen Delivery Method Room Air Weight: 116.12 kg Body Mass Index (BMI) 43.9 Intake & Output: Intake and Output for Last 24 Hours 04/24/22 04/25/22 04/26/22 23:59 23:59 23:59 Intake Total 3380.97 / 3380.97 Output Total 1200 / 1200 100 / 100 Balance 2180.97 / 2180.97 -100 / -100 Lab / Micro Data Result Diagrams: 04/25/22 09:10 Labs: Laboratory Results - last 24 hr 04/25/22 09:10: Blood Type A POSITIVE, Antibody Screen NEGATIVE Micro: Microbiology 04/25/22 09:10 Nasal Secretion SARS-CoV-2 Antigen (Rapid) - Final Physical Exam Const alert, oriented x3 and no apparent distress HEENT normocephalic Head and Scalp: atraumatic Neck full ROM Resp normal respiratory effort Cardio regular rate GI normal to inspection, nondistended, normoactive bowel sounds GI Narrative: Uterus 2 cm below umbilicus Back/Spine normal ROM Extremity normal to inspection Extremity Narrative: Minimal pedal edema Neuro no focal motor deficits and no sensory deficits noted Psych mental status grossly normal and affect normal Assessment & Plan (1) (normal spontaneous vaginal delivery): PLAN: day 1 status post precipitous delivery. Patient did receive 1 dose of Methergine , lochia minimal at this time. Vital stable. Desires home-going later this evening. Follow-up 4 to 6 weeks .
--- NOTE | 2022-04-26 09:38 | DCINST_ITS ---
Discharge Instructions Diet Discharge Diet: No restrictions Activity Discharge Activity: Return to Normal Activity and May Shower May resume sexual activity in: 4-6 weeks Weight Bearing Status: Weight bearing as tolerated Lifting Restrictions: No greater than 25 pounds Dressing / Incision Call your doctor if you observe: Fever of 101 or Higher, Change in Color, Inability to urinate, Using more than 1 pad per hour, Shortness of breath, Dizziness, Swelling in the ankles, Chest pain and Calf discomfort Follow Up Care Please Follow Up With: Arabella Ortega DO When: 4-6-week visit Test Results: Test results from this visit will be discussed in further detail at your follow- up appointment, if applicable. Discharge Plan Admission Admit Date/Time: 04/25/22 08:45 Primary Reason for Your Visit: Vaginal delivery Attending Provider: Arabella Ortega Primary Care Provider: Emily Faustin,Aniya Primary Discharge Orders/Prescriptions Prescriptions: No Action Prenatabs FA 1 tab PO DAILY famotidine [Pepcid AC] 10 mg Tablet 10 mg PO DAILY Referrals / Follow Up: Care Physician,Aniya Primary [Primary Care Provider] - Disposition Disposition (needs filled in before D/C Order can be placed): Home, Self Care
[2022-04-26 11:18] VITALS: BP 112/72; PULSE 89; RESP 16; TEMP 36.6
[2022-04-26 15:50] VITALS: BP 121/70; PULSE 81; RESP 18; TEMP 36.6
[2022-04-26] MEDS: Prenatal Vits Tablet 1 TABLET PO (15:53)
[2022-04-26] MEDS: Ibuprofen 600 MG Tablet PO (15:53)
[2022-04-26 19:29] VITALS: BP 117/65; PULSE 70; RESP 14; TEMP 36.4; O2SAT 98
== END 2022-04-26 21:50 | disposition home or self-care (01) | DRG 807 ==
PROVIDERS: Admitting Provider Student in an Organized Health Care Education/Training Program; Referring Provider Student in an Organized Health Care Education/Training Program; Visit Provider Student in an Organized Health Care Education/Training Program
DX: O99.214 Obesity complicating childbirth (principal); Z37.0 Single live birth; E66.01 Morbid (severe) obesity due to excess calories; O62.3 Precipitate labor; Z3A.40 40 weeks gestation of pregnancy; Z28.310 Unvaccinated for COVID-19; Z28.9 Immunization not carried out for unspecified reason
CPT/HCPCS: 59025; 59050; 85025; 86850; 86900; 86901; 87426; 99218; J7120; G0378; J2405